=== PATIENT | male | born 1950 | race Caucasian/White ===

== ENCOUNTER 2019-06-20 19:53 | Emergency (ER) | payer MEDICARE, MEDICAID ==
[2019-06-20] MEDS ORDERED: QUEtiapine 25 MG Tab PO ONE (20:08)
--- NOTE | 2019-06-20 20:17 | EDM.PDOCBH ---
ED HPI GENERAL MEDICAL PROBLEM - General Chief Complaint: Behavioral/Psych Stated Complaint: MEDICAL [facility] Time Seen by Provider: 06/20/19 20:05 Source of Information: Reports: EMS, Old Records History Limitations: Reports: Other (dementia) - History of Present Illness INITIAL COMMENTS - FREE TEXT/NARRATIVE: 68 yo male was sent from [employer] by EMS for striking out at others. He has known dementia. There was no mention of not eating, abdominal pain or vomiting. Onset: Today Onset Date: 06/20/19 Duration: Minutes: Location: Reports: Abdomen (patient indicates low abdominal pain) Quality: Reports: Other (unclear) Severity: Mild Improves with: Reports: None Worsens with: Reports: Other (unknown) Context: Reports: Other (See HPI) Associated Symptoms: Reports: Other (agitation) Treatments OIL DISPATCHER: Reports: Other (see below) (none) - Related Data Allergies Allergy/AdvReac Type Severity Reaction Status Date / Time cefadroxil [From Duricef] Allergy Other Verified 06/20/19 20:00 codeine Allergy Other Verified 06/20/19 20:00 Penicillins Allergy Other Verified 06/20/19 20:00 vancomycin Allergy Other Verified 06/20/19 20:00 Home Meds: Home Meds Acetaminophen [Arthritis Pain] 1 tab PO TID 06/20/19 [History] Aspirin [Ecotrin EC] 81 mg PO DAILY 06/20/19 [History] Cholecalciferol (Vitamin D3) [Vitamin D] 1,000 unit PO DAILY 06/20/19 [History] Escitalopram [Lexapro] 5 mg PO DAILY 06/20/19 [History] Finasteride 5 mg PO DAILY 06/20/19 [History] Gabapentin [Neurontin] 100 mg PO TID 06/20/19 [History] LORazepam [Ativan] 1 mg PO DAILY 06/20/19 [History] Omeprazole 20 mg PO DAILY 06/20/19 [History] Polyethylene Glycol 3350 1 dose PO DAILY 06/20/19 [History] QUEtiapine [SEROquel] 25 mg PO BID 06/20/19 [History] Rivastigmine [Exelon] 9.5 mg TRDERM DAILY 06/20/19 [History] Tamsulosin [Flomax] 0.4 mg PO DAILY 06/20/19 [History] atorvaSTATin [Lipitor] 10 mg PO BEDTIME 06/20/19 [History] ED ROS GENERAL - Review of Systems Review Of Systems: Unable To Obtain Reason Not Obtained: dementia ED EXAM, BEHAVIORAL HEALTH - Physical Exam Exam: See Below Exam Limited By: No Limitations General Appearance: Alert, WD/WN, No Apparent Distress Eye Exam: Bilateral Eye: Normal Inspection Ears: Normal External Exam, Normal Canal, Hearing Grossly Normal Nose: Normal Inspection, No Blood Throat/Mouth: Normal Inspection, Normal Lips, Normal Oropharynx, Normal Voice, No Airway Compromise Head: Atraumatic, Normocephalic Neck: Normal Inspection Respiratory/Chest: No Respiratory Distress, Lungs Clear, Normal Breath Sounds, No Accessory Muscle Use Cardiovascular: Regular Rate, Rhythm, No Edema GI/Abdominal: Distended. No: Soft, No Distention, Guarding Extremities: Normal Inspection, Normal Range of Motion, Non-Tender, No Pedal Edema Neurological: Alert, Normal Mood/Affect, CN II-XII Intact, No Motor/Sensory Deficits. No: Normal Cognition, Oriented x 3 Psychiatric: Alert, Normal Affect, Normal Mood. No: Normal Cognition, Oriented Skin Exam: Warm, Dry, Intact, Normal color, No rash COURSE, BEHAVIORAL HEALTH COMP - Course Vital Signs: Last Vital Signs Temp 35.9 C L 06/20/19 20:09 Pulse 72 06/20/19 20:09 Resp 14 06/20/19 20:09 BP 141/75 H 06/20/19 20:09 Pulse Ox 95 06/20/19 20:09 Orders, Labs, Meds: Active Orders 24 hr Category Date Time Status Abdomen 2V AP Flat Upright [CR] Stat Exams 06/20/19 20:11 Ordered Medications Discontinued Medications Generic Name Dose Route Start Last Admin Trade Name Freq PRN Reason Stop Dose Admin Quetiapine Fumarate 100 mg 06/20/19 20:08 Seroquel PO 06/20/19 20:09 ONETIME ONE Departure - Departure Time of Disposition: 21:00 Disposition: Home, Self-Care 01 Condition: Fair Clinical Impression: Dementia with behavioral disturbance Qualifiers: Dementia type: unspecified type Qualified Code(s): F03.91 - Unspecified dementia with behavioral disturbance - Discharge Information *PRESCRIPTION DRUG MONITORING PROGRAM REVIEWED*: No *COPY OF PRESCRIPTION DRUG MONITORING REPORT IN PATIENT BO: No Referrals: PCP,None [Primary Care Provider] - Forms: ED Department Discharge Additional Instructions: Contact Mr. Pena's primary care provider in the morning to discuss possible changes in his medications to control his behavioral issues. Sepsis Event Note - Evaluation Sepsis Screening Result: No Definite Risk - Focused Exam Vital Signs: Vital Signs Temp Pulse Resp BP Pulse Ox 06/20/19 20:09 35.9 C L 72 14 141/75 H 95 06/20/19 20:01 35.9 C L 72 14 141/75 H 95 Date Exam was Performed: 06/20/19 Time Exam was Performed: 20:39 - My Orders Last 24 Hours: My Active Orders 06/20/19 20:11 Abdomen 2V AP Flat Upright [CR] Stat - Assessment/Plan Last 24 Hours: My Active Orders 06/20/19 20:11 Abdomen 2V AP Flat Upright [CR] Stat
[2019-06-20] MEDS ORDERED: Polyethylene Glycol 3350 Powder 17 GM Packet PO ONE (20:48)
[2019-06-21] MEDS ORDERED: LORazepam 2 MG/ML SDV IM ONE ×2 (09:47→12:44)
--- NOTE | 2019-06-21 10:23 | CR ---
Abdomen 2V AP Flat Upright CLINICAL HISTORY: Distention FINDINGS: Stomach is mildly distended with air and fluid. There is significant fecal retention. Patient has had previous cholecystectomy. Small intestinal gas pattern is nonacute IMPRESSION: Significant fecal retention Nonacute intestinal gas pattern
== END 2019-06-21 14:19 | disposition home or self-care (01) ==
LOC: EDBD 19:53 → JP.ED 19:53
DX: F03.91 Unspecified dementia, unspecified severity, with behavioral disturbance (principal); Z88.0 Allergy status to penicillin; Z88.1 Allergy status to other antibiotic agents; Z88.5 Allergy status to narcotic agent; Z79.899 Other long term (current) drug therapy
CPT/HCPCS: 36415; 74019; 80048; 81001; 84443; 85027; 93005; 96372; 99285; A9270; J2060; 93010; 99282